=== PATIENT | male | born 1990 | race Caucasian/White ===

== ENCOUNTER 2016-11-23 09:35 | Emergency (ER) | payer OTHER ==
[2016-11-23] MEDS ORDERED: NS 1,000 ML IV ONE ×3 (09:42→10:32)
--- NOTE | 2016-11-23 09:42 | EDPHY ---
H & P Time Seen by Provider: 11/23/16 09:41 HPI/ROS: Chief complaint. Found staggering after running [employer] HPI. 26-year-old male here by EMS found walking wobbly and staggering in the stadium at the end of the [employer]. He arrived 2 days ago from [facility] to run the race. He began training 3 months ago. He felt okay before the race. At the end of the race he noted exhaustion and almost felt like he was going to pass out. He was off balance. He had no chest pain, headache, shortness of breath or abdominal pain. No illness recently. No similar symptoms previously. Patient tells me he thinks he just ran to hard during the race. ROS Constitutional. Generalized weakness Eyes. no problems with vision ENT. no sore throat, no nasal drainage Cardiovascular. no chest pain Respiratory. no shortness of breath, no cough Abdominal. no abdominal pain, no nausea/vomiting, no diarrhea . no problems urinating MS. no calf pain/swelling, no neck/back pain, no joint pain Skin. no rash Lymph. no swollen glands Neuro. Exhaustion and off balance and near syncope Past Medical/Surgical History: Schizoaffective disorder Social History: Single, nonsmoker, no alcohol Physical Exam: General Appearance: Alert well-developed male mild distress vital signs significant for heart rate 109 Eyes: Pupils equal and round no pallor or injection. ENT, Mouth: Mucous membranes are moist. Respiratory: There are no retractions, lungs are clear to auscultation. Cardiovascular: Regular rate and rhythm. Gastrointestinal: Abdomen is soft and nontender, no masses, bowel sounds normal. Neurological: Awake and alert, sensory and motor exams grossly normal. Skin: Warm and dry, no rashes. Musculoskeletal: Neck is supple nontender. Extremities symmetrical, full range of motion. Psychiatric: Patient is oriented X 3, there is no agitation. Constitutional: Initial Vital Signs Temperature (C) 37 C 11/23/16 09:35 Heart Rate 109 H 11/23/16 09:35 Respiratory Rate 16 11/23/16 09:35 Blood Pressure 117/68 11/23/16 09:35 O2 Sat (%) 94 11/23/16 09:35 O2 Delivery Mode Room Air O2 (L/minute) 2 Allergies/Adverse Reactions: Penicillins Allergy (Unverified 11/23/16 09:55) Sulfa (Sulfonamide Antibiotics) Allergy (Unverified 11/23/16 09:55) Home Medications: Medication Instructions Recorded Conejentin 11/23/16 Wellbutrin Sr 11/23/16 Xanax 11/23/16 Medical Decision Making - Diagnostics EKG Interpretation: EKG interpreted by me shows sinus tachycardia with normal interval and axis. There is nonspecific in her ventricular conduction delay however no significant ST elevation or depression. No arrhythmia. The rate is 107 Procedures: IV normal saline and 2 L given, monitor ED Course/Re-evaluation: Re-evaluation at 10:30 a.m. patient tells me that he is feeling much better. No symptoms now. The patient and I discussed treatment plan including criteria for return importance of follow-up further evaluation. He expresses understanding and agreement Differential Diagnosis: I considered dehydration, electrolyte abnormalities, acute coronary syndrome including arrhythmia as well as heat stroke and heat exhaustion. - Data Points Laboratory Results: Laboratory Results 11/23/16 09:35 11/23/16 09:35 11/23/16 11/23/16 11/23/16 10:40 09:35 09:35 WBC 8.42 10^3/uL 10^3/uL (3.80-9.50) RBC 4.90 10^6/uL 10^6/uL (4.40-6.38) Hgb 14.8 g/dL g/dL (13.7-17.5) Hct 42.7 % % (40.0-51.0) MCV 87.1 fL fL (81.5-99.8) MCH 30.2 pg pg (27.9-34.1) MCHC 34.7 g/dL g/dL (32.4-36.7) RDW 13.1 % % (11.5-15.2) Plt Count 226 10^3/uL 10^3/uL (150-400) MPV 9.4 fL fL (8.7-11.7) Neut % (Auto) 57.5 % % (39.3-74.2) Lymph % (Auto) 30.4 % % (15.0-45.0) [place] % (Auto) 5.8 % % (4.5-13.0) Eos % (Auto) 3.6 % % (0.6-7.6) Baso % (Auto) 0.7 % % (0.3-1.7) Nucleat RBC Rel Count 0.0 % % (0.0-0.2) Absolute Neuts (auto) 4.84 10^3/uL 10^3/uL (1.70-6.50) Absolute Lymphs (auto) 2.56 10^3/uL 10^3/uL (1.00-3.00) Absolute Monos (auto) 0.49 10^3/uL 10^3/uL (0.30-0.80) Absolute Eos (auto) 0.30 10^3/uL 10^3/uL (0.03-0.40) Absolute Basos (auto) 0.06 10^3/uL 10^3/uL (0.02-0.10) Absolute Nucleated RBC 0.00 10^3/uL 10^3/uL (0-0.01) Immature Gran % 2.0 % H % (0.0-1.1) Immature Gran # 0.17 10^3/uL H 10^3/uL (0.00-0.10) Sodium 145 mEq/L H mEq/L (134-144) Potassium 4.4 mEq/L mEq/L (3.5-5.2) Chloride 108 mEq/L mEq/L (97-110) Carbon Dioxide 21 mEq/l L mEq/l (22-31) Anion Gap 16 mEq/L mEq/L (8-16) BUN 13 mg/dL mg/dL (7-23) Creatinine 1.4 mg/dL H mg/dL (0.7-1.3) Estimated GFR > 60 Glucose 101 mg/dL H mg/dL (70-100) Calcium 10.2 mg/dL mg/dL (8.5-10.4) Urine Color YELLOW Urine Appearance CLEAR Urine pH 7.0 (5.0-7.5) Ur Specific [place] 1.006 (1.002-1.030) Urine Protein NEGATIVE (NEGATIVE) Urine Ketones NEGATIVE (NEGATIVE) Urine Blood NEGATIVE (NEGATIVE) Urine Nitrate NEGATIVE (NEGATIVE) Urine Bilirubin NEGATIVE (NEGATIVE) Urine Urobilinogen NEGATIVE EU EU (0.2-1.0) Ur Leukocyte Esterase NEGATIVE (NEGATIVE) Urine Glucose NEGATIVE (NEGATIVE) Medications Given: Discontinued Medications Sodium Chloride (Ns) 1,000 mls @ 0 mls/hr IV ONCE ONE PRN Reason: Wide Open Stop: 11/23/16 09:43 Last Admin: 11/23/16 09:50 Dose: 1,000 mls Sodium Chloride (Ns) 1,000 mls @ 0 mls/hr IV ONCE ONE PRN Reason: Wide Open Stop: 11/23/16 09:43 Last Admin: 11/23/16 10:02 Dose: 1,000 mls Sodium Chloride (Ns) 1,000 mls @ 0 mls/hr IV ONCE ONE PRN Reason: Wide Open Stop: 11/23/16 10:33 Last Admin: 11/23/16 10:33 Dose: 1,000 mls Departure - Departure Disposition: Home, Routine, Self-Care Clinical Impression: Heat exhaustion Qualifiers: Encounter type: initial encounter Qualified Code(s): T67.5XXA - Heat exhaustion , unspecified, initial encounter Condition: Good Instructions: Heat Exhaustion (ED) Additional Instructions: Easy activity today. Drink plenty of fluids and stay hydrated. Include Gatorade in your fluids. Return for worsening symptoms including chest discomfort trouble breathing worsening headache. Recheck in 1-2 days if not improving Referrals: Patient,NotPresent [Unknown] - As per Instructions
[2016-11-23 09:46] LABS: ABSOLUTE IMMATURE GRANULOCYTES 0.17 10^3/uL (0.00-0.10); ADD DIFF? NO; ADD MORPH? NO; ADD SCAN? NO; ATYPICAL LYMPHOCYTE FLAG 60 (0-99); FRAGMENT RBC FLAG 0 (0-99); HEMATOCRIT 42.7 % (40.0-51.0); HEMOGLOBIN 14.8 g/dL (13.7-17.5); LEFT SHIFT FLG 20 (0-99); LIPEMIA HEMOLYSIS FLAG 90 (0-99); MEAN CELL HEMOGLOBIN 30.2 pg (27.9-34.1); MEAN CELL HEMOGLOBIN CONCENTR. 34.7 g/dL (32.4-36.7); MEAN CELL VOLUME 87.1 fL (81.5-99.8); MEAN PLATELET VOLUME 9.4 fL (8.7-11.7); PLATELET CLUMPS FLAG 0 (0-99); PLATELET COUNT 226 10^3/uL (150-400); RED CELL DISTRIBUTION WIDTH 13.1 % (11.5-15.2)
--- NOTE | 2016-11-23 09:59 | CPEKG ---
Heart Rate: 107 RR Interval: 561 P-R Interval: 132 QRSD Interval: 124 QT Interval: 392 QTC Interval: 523 P [place]: 46 QRS [place]: -1 T Wave [place]: 29 EKG Severity - ABNORMAL ECG - EKG Impression: SINUS TACHYCARDIA EKG Impression: NONSPECIFIC INTRAVENTRICULAR CONDUCTION DELAY Electronically Signed By: Francisco J Garcia 23-Nov-2016 15:39:29
[2016-11-23 10:01] LABS: ANION GAP 16 mEq/L (8-16); CALCIUM 10.2 mg/dL (8.5-10.4); CARBON DIOXIDE 21 mEq/l (22-31); CHLORIDE 108 mEq/L (97-110); CREATININE 1.4 mg/dL (0.7-1.3); GLOMERULAR FILTRATION RATE > 60; GLUCOSE 101 mg/dL (70-100); POTASSIUM 4.4 mEq/L (3.5-5.2); SODIUM 145 mEq/L (134-144)
[2016-11-23 10:53] LABS: COLOR YELLOW; LEUKOCYTE ESTERASE,URINE NEGATIVE (NEGATIVE); NITRITE,URINE NEGATIVE (NEGATIVE)
[2016-11-23 11:32] VITALS: BP 130/77; PULSE 100; RESP 15; TEMP 97.7; O2SAT 95
== END 2016-11-23 11:20 | disposition home or self-care (01) ==
LOC: EDBD 09:35
DX: T67.5XXA Heat exhaustion, unspecified, initial encounter (principal)